=== PATIENT | female | born 1935 | race African-American/Black ===

== ENCOUNTER 2016-07-23 13:00 | Outpatient (RCR) | payer OTHER | END 2016-07-28 | disposition home or self-care (01) | LOC: PTY 13:00 | DX: G20 Parkinson's disease (principal); R29.818 Other symptoms and signs involving the nervous system ==

== ENCOUNTER 2016-07-31 12:45 | Outpatient (RCR) | payer OTHER | END 2016-08-25 | disposition home or self-care (01) | LOC: PTY 12:45 | DX: G20 Parkinson's disease (principal); R29.818 Other symptoms and signs involving the nervous system ==